=== PATIENT | female | born 1945 | race Hispanic/Latino ===

== ENCOUNTER 2021-02-25 17:52 | Inpatient (IN) | payer MEDICAID, SELFPAY ==
[2021-02-25 19:29] LABS: #Monocytes 0.5 10x3/uL (0.0-1.1); #Neutrophils 7.6 10x3/uL (1.5-8.4); %Basophils 0.1 % (0.0-2.0); %Eosinophils 0.1 % (0.0-6.0); %Lymphocytes 15.3 % (18.0-47.0); %Monocytes 5.5 % (0.0-10.0); %Neutrophils 78.7 % (40.0-75.0); Hemoglobin 14.3 g/dL (12.0-15.5); Mean Corpuscular HGB CONC 32.4 g/dL (32.0-36.0); Mean Corpuscular Volume 89.5 fl (81.6-98.3); Mean Platelet Volume 11.2 fl (7.4-10.4); Platelet Count 192 10x3/uL (150-450); RBC Distribution Width 14.8 % (11.5-14.5); Red Blood Cell (RBC) Count 4.93 10x6/uL (3.90-5.03); White Blood Cell (WBC) Count 9.7 10x3/uL (3.5-10.5)
[2021-02-25 19:37] LABS: Bilirubin Neg (Negative); Blood, Urine 25 (Negative); Clarity Clear (Clear); Glucose, Urine (Dipstick) Normal (Negative); Ketone, Urine Negative (Negative); Leukocyte 25 (Negative); Nitrite Positive (Negative); Protein, Urine (Dipstick) Negative (Neg-Trace); Urobilinogen Normal mg/dL (Less than 2)
[2021-02-25 19:43] LABS: ALT (SGPT) 15 U/L (8-55); AST (SGOT) 21 U/L (5-34); Albumin 4.1 g/dL (3.4-4.8); Alkaline Phosphatase 61 U/L (40-110); Anion Gap 12 mmol/L (10-20); BUN (Urea Nitrogen) 11 mg/dL (9.8-20.1); Bilirubin, Total 1.1 mg/dL (0.2-1.2); Calc. Creatinine Clearance 0 mL/min (70-130); Calcium 9.8 mg/dL (7.8-10.44); Carbon Dioxide 24 mmol/L (23-31); Chloride 104 mmol/L (98-107); Globulin 3.7 g/dL (2.4-3.5); Glucose 119 mg/dL (83-110); Potassium 4.2 mmol/L (3.5-5.1); Protein, Total 7.8 g/dL (5.8-8.1); Sodium 136 mmol/L (136-145)
[2021-02-25 19:46] LABS: Bacteria/HPF 4+ HPF (None Seen); Mucous/LPF 1+ LPF (<2+); RBC/HPF 0-3 HPF (0-3); Squamous Epithelial 0-3 HPF (0-3); WBC/HPF 0-3 HPF (0-3)
[2021-02-26 00:03] VITALS: BMI 32.2
[2021-02-26] MEDS ORDERED: Ondansetron PF 4 MG/2 ML Vial IVP PRN ×2 (00:31→13:35)
[2021-02-26] MEDS ORDERED: Ondansetron ODT 4 MG TAB PO PRN (00:31)
[2021-02-26] MEDS ORDERED: Morphine 4 MG/ML VIAL SLOW IVP PRN ×2 (00:31→13:35)
[2021-02-26] MEDS ORDERED: Acetaminophen 325 MG TAB PO PRN (00:32)
[2021-02-26] MEDS ORDERED: Sodium Chloride 0.9% 1,000 ML ONE (00:46)
[2021-02-26] MEDS: Sodium Chloride 0.9% 1,000 ML IV SCH ×2 (00:58→18:17)
[2021-02-26] MEDS ORDERED: cefTRIAXone\\ROCEPHIN 1 GM in Sodium Chloride 0.9% 100 ML IVPB SCH (01:00)
[2021-02-26] MEDS ORDERED: Piperacillin/Tazobactam 3.375 GM in Sodium Chloride 0.9% 100 ML IVPB SCH ×3 (01:00→18:00)
[2021-02-26 02:44] LABS: SARS-CoV-2 NAA Rapid Test Not Detected (NotDetected)
[2021-02-26] MEDS ORDERED: EPINEPHrine 1 MG/ML AMP ONE (11:36)
[2021-02-26] MEDS ORDERED: Bupivacaine 0.25% HCL 30 ML VIAL ONE (11:36)
[2021-02-26] MEDS ORDERED: PROPOFOL 20 ML ONE (11:40)
[2021-02-26] MEDS ORDERED: Fentanyl 100 MCG/2 ML VIAL ONE ×2 (11:40→13:44)
[2021-02-26] MEDS ORDERED: Ondansetron PF 4 MG/2 ML Vial ONE (11:41)
[2021-02-26] MEDS ORDERED: Rocuronium Bromide 10 MG/ML (10ML VIAL) ONE (11:41)
[2021-02-26] MEDS ORDERED: Lidocaine 1% PF 5 ML VIAL ONE (11:41)
[2021-02-26] MEDS ORDERED: Dexamethasone 4 mg/ml Vial ONE (11:41)
[2021-02-26] MEDS ORDERED: Glycopyrrolate 0.2 MG/ML 5 ML SYRINGE ONE (11:41)
[2021-02-26] MEDS ORDERED: PHENYLEPHRINE-NS 100 MCG/ML 10 ML SYRINGE ONE (12:11)
[2021-02-26] MEDS ORDERED: Dextrose 5% in Water 1,000 ML IV PRN (13:35)
[2021-02-26] MEDS ORDERED: Dextrose 50% Abboject 50 ML SYRINGE SLOW IVP PRN (13:35)
[2021-02-26] MEDS ORDERED: Promethazine HCl 25 MG/ML VIAL IM PRN (13:35)
[2021-02-26] MEDS ORDERED: HYDROcodone/Acetaminophen 10/325 mg Tablet PO PRN (13:35)
[2021-02-26] MEDS ORDERED: hydrALAZINE 20 MG/ML VIAL SLOW IVP PRN (13:35)
[2021-02-26] MEDS ORDERED: Calcium Carbonate 500 MG ChewTAB PO PRN (13:35)
[2021-02-26] MEDS ORDERED: Mag-Al 1200 mg/1200 mg/30 ML UDCUP PO PRN (13:35)
[2021-02-26] MEDS ORDERED: Morphine 2 MG/ML VIAL SLOW IVP PRN (13:35)
[2021-02-26] MEDS: Piperacillin/Tazobactam 3.375 GM in Sodium Chloride 0.9% 100 ML IVPB SCH ×2 (15:52→23:48)
[2021-02-26] MEDS: D5 1/2 NS w/20 mEq KCL 1,000 ML IV SCH ×2 (15:52→23:52)
[2021-02-26] MEDS: Ketorolac Tromethamine 30 MG/ML VIAL IVP SCH ×2 (18:16→23:48)
[2021-02-26] MEDS: Famotidine 20 MG TAB PO SCH (21:19)
[2021-02-26] MEDS: Famotidine/PF 20 mg/2ml Vial SLOW IVP SCH (21:25)
[2021-02-27] MEDS: HYDROcodone/Acetaminophen 10/325 mg Tablet PO PRN ×2 (03:55→20:44)
[2021-02-27] MEDS: Ketorolac Tromethamine 30 MG/ML VIAL IVP SCH ×4 (05:46→22:58)
[2021-02-27] MEDS: Piperacillin/Tazobactam 3.375 GM in Sodium Chloride 0.9% 100 ML IVPB SCH ×3 (05:47→22:56)
[2021-02-27 05:56] LABS: ALT (SGPT) 30 U/L (8-55); AST (SGOT) 45 U/L (5-34); Albumin 3.1 g/dL (3.4-4.8); Alkaline Phosphatase 46 U/L (40-110); Anion Gap 14 mmol/L (10-20); BUN (Urea Nitrogen) 8 mg/dL (9.8-20.1); Bilirubin, Total 1.1 mg/dL (0.2-1.2); Calc. Creatinine Clearance 76 mL/min (70-130); Carbon Dioxide 19 mmol/L (23-31); Chloride 109 mmol/L (98-107); Globulin 3.2 g/dL (2.4-3.5); Glucose 139 mg/dL (83-110); Lipase 11 U/L (8-78); Potassium 4.4 mmol/L (3.5-5.1); Protein, Total 6.3 g/dL (5.8-8.1); Sodium 138 mmol/L (136-145)
[2021-02-27 06:11] LABS: #Monocytes 0.7 10x3/uL (0.0-1.1); #Neutrophils 7.9 10x3/uL (1.5-8.4); %Basophils 0.2 % (0.0-2.0); %Lymphocytes 14.6 % (18.0-47.0); %Monocytes 6.5 % (0.0-10.0); %Neutrophils 78.4 % (40.0-75.0); Hemoglobin 12.3 g/dL (12.0-15.5); Mean Corpuscular HGB CONC 33.5 g/dL (32.0-36.0); Mean Corpuscular Hemoglobin 29.6 pg (27.0-33.0); Mean Corpuscular Volume 88.4 fl (81.6-98.3); Mean Platelet Volume 11.9 fl (7.4-10.4); Platelet Count 168 10x3/uL (150-450); RBC Distribution Width 14.9 % (11.5-14.5); Red Blood Cell (RBC) Count 4.15 10x6/uL (3.90-5.03)
[2021-02-27] MEDS: D5 1/2 NS w/20 mEq KCL 1,000 ML IV SCH ×2 (09:26→17:50)
[2021-02-27] MEDS: Famotidine/PF 20 mg/2ml Vial SLOW IVP SCH ×2 (09:27→20:37)
[2021-02-27] MEDS: Enoxaparin Sodium 30 MG/0.3 ML SYRINGE SC SCH (10:18)
[2021-02-27] MEDS: Famotidine 20 MG TAB PO SCH ×2 (10:19→20:37)
[2021-02-28] MEDS: D5 1/2 NS w/20 mEq KCL 1,000 ML IV SCH ×2 (00:49→10:47)
[2021-02-28] MEDS: Piperacillin/Tazobactam 3.375 GM in Sodium Chloride 0.9% 100 ML IVPB SCH (06:27)
[2021-02-28] MEDS: Ketorolac Tromethamine 30 MG/ML VIAL IVP SCH (06:28)
[2021-02-28 08:37] VITALS: BP 123/69; TEMP 97.1
[2021-02-28] MEDS ORDERED: Fentanyl 100 MCG/2 ML VIAL ONE (08:44)
[2021-02-28] MEDS ORDERED: Midazolam HCl 2 mg/2 ml Vial ONE (08:49)
[2021-02-28] MEDS: Enoxaparin Sodium 30 MG/0.3 ML SYRINGE SC SCH (10:47)
[2021-02-28] MEDS: Famotidine/PF 20 mg/2ml Vial SLOW IVP SCH (10:48)
[2021-02-28] MEDS: Famotidine 20 MG TAB PO SCH (10:48)
== END 2021-02-28 12:16 | disposition home or self-care (01) | DRG 418 ==
LOC: CSHERS 17:52 → CSHTELE 21:38 → INTOOBSV 21:38 → UNDOADMIN 21:57 → OBSVTOIN 21:57 → CSHTELE 21:57 → OBSVTOIN 02-26 13:35 → UNDOADMIN 02-26 13:35 → CSHTELE 02-26 13:35 → UNDODISIN 02-28 12:16
PROVIDERS: ADMIT Student in an Organized Health Care Education/Training Program; ATTEND Student in an Organized Health Care Education/Training Program
PROC: 0FT44ZZ Resection of Gallbladder, Percutaneous Endoscopic Approach (ICD-10-PCS; principal; 2021-02-26)
DX: K80.00 Calculus of gallbladder with acute cholecystitis without obstruction (principal); N39.0 Urinary tract infection, site not specified; F17.210 Nicotine dependence, cigarettes, uncomplicated; Z20.822 Contact with and (suspected) exposure to COVID-19
CPT/HCPCS: 76705; 80053; 81003; 81015; 83690; 85025; 87070; 87077; 87186; 87205; 88304; 94760; 96372; 96374; 96375; 96376; G0378; J0171; J0500; J0696; J1100; J1650; J1885; J2250; J2270; J2405; J2543; J2704; J3010; J3480; J3490; J7050; S0020; S0028; U0002